=== PATIENT | male | born 1940 | race Caucasian/White ===

== ENCOUNTER 2021-09-08 15:54 | Observation (INO) | payer BC, SELFPAY ==
[2021-09-08] VITALS (8 sets, daily range): BP systolic 134–162; BP diastolic 61–66; PULSE 60–98; RESP 16–20; TEMP 36.4–36.8; O2SAT 95–98; BMI 22.8; BMI 26.3
--- NOTE | 2021-09-08 17:13 | CRLHL7_ITS ---
For Patients: As a result of the Century Cures Act, medical imaging exams and procedure reports are released immediately into your electronic medical record. You may view this report before your referring provider. If you have questions, please contact your health care provider. INDICATION: Nausea vomiting and epigastric pain.. TECHNIQUE: CT abdomen and pelvis without contrast. COMPARISON: None. FINDINGS: Lower chest: Mild bibasilar atelectasis. Liver: Normal in size and attenuation. No suspicious masses. Gallbladder and bile ducts: Mildly dilated gallbladder with sludge. No stones or inflammation. No biliary dilatation. Pancreas: Unremarkable. No mass or inflammation. Spleen: Normal in size. No masses. Adrenal glands: Normal in size. No nodules. Kidneys: Normal in size. No suspicious masses, stones, or hydronephrosis. GI tract: Unremarkable. Normal in caliber. No sign of mass or inflammation. Normal appendix. Vasculature: Abdominal aorta is normal in caliber. Lymph nodes: Significant retroperitoneal lymphadenopathy is identified. In the upper abdomen at the level of the left renal artery, medical field representative lymph node measures 2.3 by 2.6 centimeters (2/50). Or additional lymph node conglomerate is identified slightly inferiorly along the left lateral aspect of the aorta. Peritoneum/Abdominal Wall: Unremarkable. No sign of mass or infiltration. No free air or significant free fluid. Pelvis: Apodaca catheter in situ. Bones: Demineralization of the visualized bones. Scoliosis of the lumbar spine with degenerative changes. Lytic lesion with erosive changes identified at the superior aspect of the right iliac crest (273; 4/58). IMPRESSION: 1. Enlarged retroperitoneal lymph nodes with largest lymph node conglomerate along the distal left abdominal aorta of unknown etiology. The pattern of lymphadenopathy is suspicious for prostate carcinoma, or other GI/ malignancy or lymphoproliferative process. 2. Lytic lesion in the right iliac crest with erosive changes, would be a finding favoring metastatic prostate carcinoma among other metastatic malignancies. Correlate with clinical/laboratory findings and age appropriate malignancy screening. Please note that all CT scans at this facility use dose modulation, iterative reconstruction, and/or weight-based dosing when appropriate to reduce radiation dose to as low as reasonably achievable. Dictated by Geraldo Arreguin MD @ 09/08/2021 7:04:53 PM (Electronically Signed)
--- NOTE | 2021-09-08 17:20 | ED_ITS ---
HPI - Abdominal Pain General Time Seen by Provider: 17:10 Date Seen: 09/08/21 Chief Complaint: Nausea/Vomiting Stated Complaint: Epigastric pain Time Seen by Provider: 09/08/21 16:38 Source: patient and family ( is present) Mode of arrival: ambulatory Limitations: no limitations History of Present Illness HPI narrative: This 81-year-old male is a hospice patient for reported prostate cancer coming in with inability to take in oral medicines or oral liquids or food. Two nights ago he had some difficulty taking pills but then yesterday did fine until the evening. Yesterday morning he had some macaroni and cheese and shrimp during the day. However by last night he could not even swallow his pills, could not keep water down. He is having ongoing nausea and vomiting now. He complains of abdominal pain and bloating. The pain is primarily in the epigastric area. She is not aware of any fevers. He had a normal bowel movement that was reported to be ?good? yesterday. They have also noted that his lower extremities are getting more swollen, his toes are painful from the swollen to the point she does not want sheets over them. They are symmetrically swollen. He has also noted that his hands have become a bit swollen, he did take off his wedding ring earlier today. He did have to use a suppository to have a bowel movement yesterday but states it was quite good. He is a hospice patient but his symptoms are traumatic enough for him that he feels he needs evaluation and management. 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 MD elicited complaint: abdominal pain Pertinent past history: other (Prostate cancer) Onset (ago): day(s) Pain Consistency: constant Location: epigastric Severity: moderate Associated symptoms: nausea and vomiting Related Data Home Medications Medication Instructions Recorded Confirmed bisacodyl 10 mg rectal suppository 10 mg IN DAILY PRN 09/08/21 09/08/21 diphenhydramine HCl 09/08/21 gabapentin 300 mg capsule 300 mg PO DAILY 09/08/21 09/08/21 hydrocodone 5 mg-acetaminophen 325 1 tab PO Q4H 09/08/21 09/08/21 mg tablet melatonin 3 mg capsule 3 mg PO HS PRN 09/08/21 09/08/21 prochlorperazine maleate 10 mg 5 mg PO Q6H PRN 09/08/21 09/08/21 tablet sennosides 8.6 mg-docusate sodium 1 tab-cap PO BID 09/08/21 09/08/21 50 mg tablet trazodone 150 mg tablet 100 mg PO DAILY 09/08/21 09/08/21 trazodone 50 mg tablet 50 mg PO DAILY 09/08/21 09/08/21 Allergies Allergy/AdvReac Type Severity Reaction Status Date / Time No Known Drug Allergies Allergy Verified 09/08/21 16:48 Review of Systems Status of ROS Reports: 10 or more systems reviewed and unremarkable except as noted in History and below PFS PFS Social History Smoking Status: Never smoker Second hand tobacco smoke exposure: No How often do you have a drink containing alcohol: never How many standard drinks containing alcohol do you have on a typical day: 1 or 2 How often do you have six or more drinks on one occasion: Never AUDIT-C Alcohol total score: 0 Non-prescribed substance use: denies use service: Yes Exam Const: Vital Signs, click to edit/add: Vital Signs - 24 hr 09/08/21 16:34 09/08/21 16:37 09/08/21 17:00 Temperature 98.2 F Pulse Rate [Right Pulse Oximeter] 98 70 Respiratory Rate 20 18 Blood Pressure [Ri ght Upper Arm] 142/61 H 142/61 H 137/64 Pulse Oximetry 98 96 09/08/21 18:00 09/08/21 19:00 Temperature Pulse Rate [Right Pulse Oximeter] 60 60 Respiratory Rate 16 Blood Pressure [Ri ght Upper Arm] 142/66 H 162/64 H Pulse Oximetry 96 95 Documenting provider has reviewed patient's vital signs: yes Common normals: no apparent distress and oriented x3 General appearance: cooperative, frail appearing and other (Has an emesis bag in hand) Nutritional appearance: thin Orientation/consciousness: Yes awake HENMT: Common normals: normocephalic, head/scalp atraumatic and external nose normal Head and scalp: normocephalic and atraumatic Face and sinus: normal facial exam Nose: external nose normal Mouth: oral and palatal mucosa normal, lip normal and tongue normal Eye: Common normals: PERRL and EOMs intact bilaterally Pupil: PERRL Neck & C-Spine: Common normals: full ROM, no lymphadenopathy, supple and no JVD Chest: Common normals: inspection of chest normal Resp: Common normals: normal respiratory effort, no retractions, no use of accessory muscles and clear to auscultation bilaterally Auscultation: clear to auscultation bilaterally Cardio: Common normals: no JVD, regular rate, regular rhythm, S1 normal heart sound, S2 normal heart sound, no gallops, no clicks and no murmurs Rate: regular rate Rhythm: regular rhythm Heart sounds: S1 normal and S2 normal GI: Common normals: soft to palpation Inspection: abdominal distension Auscultation: hypoactive bowel sounds Palpation: soft and tender (No masses palpable however) Details: epigastric : Bladder/kidney exam: catheter in place Extremity: Other: Bilateral symmetric edema without erythema or evidence of infection. About 2 to 3+ pitting edema bilaterally, edema extends in the feet and toes. Neuro: Common normals: oriented x3 Sensorium/orientation: awake Skin: Common normals: no rashes or lesions noted General skin exam: no rashes or lesions noted Course Course Hospital Course: Reviewed with patient and his workup options. Did discuss just treating him symptomatically with pain given he is a hospice patient verses looking into possible causative etiologies. At this point he is inclined to have further evaluation and see if there is anything correctable. He does understand that there certainly may be conditions with his prostate cancer in being in hospice that we would not act on but we would not know all unless we figure out definitive pathology for his issue. He at this time seems to be having more difficulty with nausea and vomiting and this does not sound like it is dysphagia. We will proceed with basic labs and obtain CT abdomen pelvis noncontrast given the IV shortage of contrast. Patient is in agreement with the plan. We will place an IV and give him pain management with 2 mg IV morphine and nausea control with 4 mg IV Zofran. The swelling certainly is symmetric in bilateral his is wanting to know if it is something new that is happening or if it is possibly the cancer process. Certainly could be either. Reevaluation(s) Reevaluation #1: Patient has just returned from having his CT scan done. Have reviewed with them labs are looking reassuring but will await the CT scan. He is feeling a bit better after the Zofran and morphine but still does not want to attempt to try to drink anything, even declines trying ice chips. Time: 18:37 Reevaluation #2: Reviewed his CT findings. It looks like there is some significant lymphadenopathy in the pelvis which could be contributing to the edema. Have discussed that there isn't anything with in the CT that is really pointing to any cause of nausea or vomiting. They are wondering really how long he might have to live and I unfortunately reviewed with them that I really a.m. not familiar enough with his case to her really give any educated estimates on that. As far as his symptoms, if we can control his nausea he can discharge to home. He had not wanted to try anything orally but states his nausea is better. On talking to him I a still believe that this is not dysphagia. He states any time anything hit his throat it makes him feel like he wants to throw up but he is adamant that nothing is getting stuck. He is willing to try some ice chips at this point to see if he can tolerate this. If this makes him nauseated, 1st will re-dose Zofran, consider adding in some Ativan. We cannot get his nausea under control he may need to come in the hospital and have this worked on before discharging back to home. Time: 19:44 Reevaluation #3: Dr. Fallon Loera who is the hospice physician did call me at 7:54 p.m.. She was concerned about this patient and this nausea vomiting and why she could not get control of it. Reviewed with her that we really do not have a good causative etiology at this time. She wondered about esophageal or gastritis type issues as he had had a history of taking a lot of ibuprofen before the last month. Patient was concerned that some of his pain was coming back in he really did not think you would be able to swallow the [place]. He did tolerate a 2.5 mg oxycodone but then stated he did not think he would be able to swallow another 1 if he needed it. Is difficult to say if his nausea is coming back and might be narcotic induced. Not completely sure if there might be a component of dysphagia here from what is described in but he states nothing is getting stuck, it just when he swallows it makes him feel like he is nauseated and has to throw up. He is worried about going home, feeling that his nausea and pain management will not be controlled. His hospice physician favored admission. I have subsequently spoken with our hospitalist Dr. Koroma who will see and admit the patient but it will likely be under observation. I have reviewed that with patient and his as well. COVID screening testing has been added. Time: 21:10 Vital Signs Vital signs: Initial Vital Signs Pulse Rhythm 09/08/21 16:34 Respiratory Depth Normal 09/08/21 16:34 Blood Pressure 142/61 H 09/08/21 16:34 Blood Pressure Mean 88 09/08/21 16:34 Oxygen Delivery Method 09/08/21 16:34 Vital Signs Blood Pressure 142/61 H 09/08/21 16:34 Temperature 98.2 F 09/08/21 16:37 Pulse Rate 60 09/08/21 19:00 Respiratory Rate 16 09/08/21 19:00 Blood Pressure 162/64 H 09/08/21 19:00 Pulse Oximetry 95 09/08/21 19:00 MDM - Abdominal Pain MDM Narrative Medical decision making narrative: See hospital course. Lab Data Attestation: I reviewed the patient's lab results. Labs: Lab Results 09/08/21 09/08/21 09/08/21 Range/Units 17:35 17:35 17:35 WBC 8.92 (4.50-11.00) K/uL RBC 3.92 L (4.30-5.90) m/uL Hgb 10.9 L (13.5-17.5) gm/dL Hct 32.6 L (37.0-53.0) % MCV 83 (80-100) fL MCH 28 (26-34) pg MCHC 33 (32-36) gm/dL RDW Coeff of Larry 13.9 (11.5-15.5) % Plt Count 281 (140-440) K/uL Neut % (Auto) 88.9 H (42.0-72.0) % Lymph % (Auto) 5.0 L (20-44) % [place] % (Auto) 4.5 (0.0-11.0) % Eos % (Auto) 0.2 (0.0-7.0) % Baso % (Auto) 0.2 (0.0-3.0) % Neut # (Auto) 7.90 H (1.7-7.0) K/uL Lymph # (Auto) 0.40 L (0.90-2.90) K/uL [place] # (Auto) 0.40 (0.00-0.90) K/UL Eos # (Auto) 0.02 (0.00-0.50) K/uL Baso # (Auto) 0.02 (0.00-0.30) K/uL Abs Immat Gran (auto) 0.11 (0.00-0.30) K/uL Sodium 132 L (135-149) mmol/L Potassium 5.3 H (3.6-5.1) mmol/L Chloride 99 (96-114) mmol/L Carbon Dioxide 23 (20-32) mmol/L BUN 20 (7-30) mg/dL Creatinine 0.9 (0.5-1.5) mg/dL Estimated Creat Clear 55.75 Glucose 122 H (60-115) mg/dL Lactate 1.0 (0.5-1.9) mmol/L Calcium 9.5 (8.4-10.6) mg/dL Total Bilirubin 1.1 (0.1-1.5) mg/dL AST 31 (12-35) U/L ALT 15 (4-50) U/L Alkaline Phosphatase 160 H (40-150) U/L Total Protein 6.3 (6.0-8.3) g/dL Albumin 3.8 (3.3-5.0) g/dL Lipase 47 (23-300) U/L Imaging Data CT scan - abdomen: Attestation: I have reviewed the pertinent imaging results. Radiologist's impression: Patient: KEV MENDENHALL Facility:?[facility] Patient ID:?[id number] Site Patient ID:?[id number]. Site :?[id number] Study:?CT Abdomen/Pelvis WITHOUT-09/08/2021 6:39:41 PM Ordering Physician:?Wali Dobbins Final Report: INDICATION: Nausea vomiting and epigastric pain.. TECHNIQUE: CT abdomen and pelvis without contrast. COMPARISON: None. FINDINGS: Lower chest: Mild bibasilar atelectasis. Liver: Normal in size and attenuation. No suspicious masses. Gallbladder and bile ducts: Mildly dilated gallbladder with sludge. No stones or inflammation. No biliary dilatation. Pancreas: Unremarkable. No mass or inflammation. Spleen: Normal in size. No masses. Adrenal glands: Normal in size. No nodules. Kidneys: Normal in size. No suspicious masses, stones, or hydronephrosis. GI tract: Unremarkable. Normal in caliber. No sign of mass or inflammation. Normal appendix. Vasculature: Abdominal aorta is normal in caliber. Lymph nodes: Significant retroperitoneal lymphadenopathy is identified. In the upper abdomen at the level of the left renal artery, real estate representative lymph node measures 2.3 by 2.6 centimeters (2/50). Or additional lymph node conglomerate is identified slightly inferiorly along the left lateral aspect of the aorta. Peritoneum/Abdominal Wall: Unremarkable. No sign of mass or infiltration. No free air or significant free fluid. Pelvis: Apodaca catheter in situ. Bones: Demineralization of the visualized bones. Scoliosis of the lumbar spine with degenerative changes. Lytic lesion with erosive changes identified at the superior aspect of the right iliac crest (2/73; 4/58). IMPRESSION: 1. Enlarged retroperitoneal lymph nodes with largest lymph node conglomerate along the distal left abdominal aorta of unknown etiology. The pattern of lymphadenopathy is suspicious for prostate carcinoma, or other GI/ malignancy or lymphoproliferative process. 2. Lytic lesion in the right iliac crest with erosive changes, would be a finding favoring metastatic prostate carcinoma among other metastatic malignancies. Correlate with clinical/laboratory findings and age appropriate malignancy screening. Please note that all CT scans at this facility use dose modulation, iterative reconstruction, and/or weight-based dosing when appropriate to reduce radiation dose to as low as reasonably achievable. Dictated by Geraldo Arreguin MD @ 09/08/2021 7:04:53 PM (Electronic Signature) Critical Care Time Critical Care Time Critical Care Time: No Discharge Plan Discharge Clinical Impression: Acute nausea with nonbilious vomiting, Malignant neoplasm of prostate metastatic to bone Patient Disposition: Admitted As Inpatient Condition: Stable Prescriptions: No Action melatonin 3 mg capsule 3 mg PO HS PRN0RF prochlorperazine maleate 10 mg tablet 5 mg PO Q6H PRN0RF hydrocodone-acetaminophen 5-325 mg tablet 1 tab PO Q4H 0RF bisacodyl 10 mg suppository 10 mg IN DAILY PRN0RF trazodone 50 mg tablet 50 mg PO DAILY 0RF sennosides-docusate sodium 8.6-50 mg tablet 1 tab-cap PO BID 0RF gabapentin 300 mg capsule 300 mg PO DAILY 0RF diphenhydramine HCl [Benadryl Allergy] 0RF trazodone 150 mg tablet 100 mg PO DAILY 0RF
[2021-09-08 17:44] LABS: Basophils Absolute Auto 0.02 K/uL (0.00-0.30); Basophils Percent Auto 0.2 % (0.0-3.0); Eosinophils Absolute Auto 0.02 K/uL (0.00-0.50); Eosinophils Percent Auto 0.2 % (0.0-7.0); Hematocrit 32.6 % (37.0-53.0); Hemoglobin* 10.9 gm/dL (13.5-17.5); Immature Granulocytes Abs Auto 0.11 K/uL (0.00-0.30); Mean Corpuscular HGB Conc 33 gm/dL (32-36); Mean Corpuscular Hemoglobin 28 pg (26-34); Mean Corpuscular Volume 83 fL (80-100); Monocytes Percent Auto 4.5 % (0.0-11.0); Neutrophils Percent Auto 88.9 % (42.0-72.0); Platelet Count* 281 K/uL (140-440); RDW Coefficient of Variation % 13.9 % (11.5-15.5); Red Blood Count 3.92 m/uL (4.30-5.90); White Blood Count* 8.92 K/uL (4.50-11.00)
[2021-09-08 17:47] LABS: Slide Review Reflex No
[2021-09-08] MEDS: ONDANSETRON 2 MG/ML inj 4 MG IVP (17:53)
[2021-09-08] MEDS: MORPHINE 2 MG/ML inj IVP (17:56)
[2021-09-08 17:59] LABS: Albumin* 3.8 g/dL (3.3-5.0); Chloride* 99 mmol/L (96-114); Potassium* 5.3 mmol/L (3.6-5.1); Sodium* 132 mmol/L (135-149)
[2021-09-08 18:01] LABS: Aspartate Amino Transferase* 31 U/L (12-35); Bilirubin Total* 1.1 mg/dL (0.1-1.5); Carbon Dioxide* 23 mmol/L (20-32); Creatinine* 0.9 mg/dL (0.5-1.5); Est. Creatinine Clearance* 55.75
[2021-09-08 18:02] LABS: Alanine Aminotransferase* 15 U/L (4-50); Alkaline Phosphatase* 160 U/L (40-150); Blood Urea Nitrogen* 20 mg/dL (7-30); Calcium* 9.5 mg/dL (8.4-10.6); Glucose* 122 mg/dL (60-115); Lipase* 47 U/L (23-300); Total Protein* 6.3 g/dL (6.0-8.3)
--- NOTE | 2021-09-08 18:40 | ED.NURSE ---
[facility] had called-yanni, at [phone], basic update was given.
--- NOTE | 2021-09-08 18:45 | ED.NURSE ---
dr evans was in to see.
[2021-09-08] MEDS: OXYCODONE 5 MG TABLET 2.5 MG PO (20:22)
[2021-09-08 22:10] LABS: SARS Antigen* negative (Negative)
--- NOTE | 2021-09-08 22:29 | ED.NURSE ---
Report to glenna [facility] on med surg, pt transported via cart to room 243.
--- NOTE | 2021-09-08 22:38 | PM.IMHP1 ---
Hospitalist- H&P: ILANA History of Present Illness Time Seen by Provider: 22:00 Date Seen: 09/08/21 Chief complaint: Epigastric pain Narrative: Usama Young is a 81 year old male with past medical history of prostate cancer; currently enrolled in hospice presenting for evaluation of abdominal pain, nausea, and vomiting. He endorses worsening epigastric abdominal pain but denies chest pain and SOB. He endorses nauase, vomiting, constipation. He also endorses insomnia. He lives with at home and has been unable to control his symptoms. He confirms that he is enrolled in hospice, is comfort care. His primary goal is symptom management. Due to worsening nausea and vomiting he was admitted under observation status. Review of Systems Status of ROS: Reports: 6 or more systems reviewed and unremarkable except as noted in History and below PFSH PFSH Social History Smoking Status: Never smoker Second hand tobacco smoke exposure: No How often do you have a drink containing alcohol: never How many standard drinks containing alcohol do you have on a typical day: 1 or 2 How often do you have six or more drinks on one occasion: Never AUDIT-C Alcohol total score: 0 Non-prescribed substance use: denies use service: Yes Meds Home Medications and Allergies Home Medications Medication Instructions Recorded Confirmed Type bisacodyl 10 mg rectal suppository 10 mg MN DAILY PRN 09/08/21 09/08/21 History diphenhydramine HCl 09/08/21 History gabapentin 300 mg capsule 300 mg PO DAILY 09/08/21 09/08/21 History hydrocodone 5 mg-acetaminophen 325 1 tab PO Q4H 09/08/21 09/08/21 History mg tablet melatonin 3 mg capsule 3 mg PO HS PRN 09/08/21 09/08/21 History prochlorperazine maleate 10 mg 5 mg PO Q6H PRN 09/08/21 09/08/21 History tablet sennosides 8.6 mg-docusate sodium 1 tab-cap PO BID 09/08/21 09/08/21 History 50 mg tablet trazodone 150 mg tablet 100 mg PO DAILY 09/08/21 09/08/21 History trazodone 50 mg tablet 50 mg PO DAILY 09/08/21 09/08/21 History Allergies Allergy/AdvReac Type Severity Reaction Status Date / Time No Known Drug Allergies Allergy Verified 09/08/21 16:48 Exam Narrative: Exam Narrative: Gen: no acute distress HEENT: NCAT EOMI MMM Neck: Supple CV: RRR normal s1 s2 Lungs: CTAB Abd: epigastric tenderness no rebound or guarding MSK: age appropriate muscle mass Skin: warm, dry, no rash on face Neuro: alert; oriented; appears at baseline state Psych: appropriate affect Const: Vital Signs, click to edit/add: Vital Signs - 24 hr 09/08/21 16:34 09/08/21 16:37 09/08/21 17:00 Temperature 98.2 F Pulse Rate [Right Pulse Oximeter] 98 70 Respiratory Rate 20 18 Blood Pressure [Ri ght Upper Arm] 142/61 H 142/61 H 137/64 Pulse Oximetry 98 96 09/08/21 18:00 09/08/21 19:00 Temperature Pulse Rate [Right Pulse Oximeter] 60 60 Respiratory Rate 16 Blood Pressure [Ri ght Upper Arm] 142/66 H 162/64 H Pulse Oximetry 96 95 Hospitalist - H&P: Result Labs Labs: Short CBC 09/08/21 Range/Units 17:35 WBC 8.92 (4.50-11.00) K/uL Hgb 10.9 L (13.5-17.5) gm/dL Hct 32.6 L (37.0-53.0) % Plt Count 281 (140-440) K/uL BMP 09/08/21 17:35 Sodium 132 L Potassium 5.3 H Chloride 99 Carbon Dioxide 23 BUN 20 Creatinine 0.9 Glucose 122 H Calcium 9.5 Liver Function 09/08/21 Range/Units 17:35 Total Bilirubin 1.1 (0.1-1.5) mg/dL AST 31 (12-35) U/L ALT 15 (4-50) U/L Alkaline Phosphatase 160 H (40-150) U/L Albumin 3.8 (3.3-5.0) g/dL Assessment and Plan Assessment and plan (1) Acute nausea with nonbilious vomiting: Status: Acute (2) Malignant neoplasm of prostate metastatic to bone: Status: Acute Plan Assessment: Usama Young is a 81 year old male with past medical history of prostate cancer; currently enrolled in hospice presenting for evaluation of abdominal pain, nausea, and vomiting. He endorses worsening epigastric abdominal pain but denies chest pain and SOB. He endorses nauase, vomiting, constipation. He also endorses insomnia. He confirms that he is enrolled in hospice, is comfort care. His primary goal is symptom management. Due to worsening nausea and vomiting he was admitted under observation status. 1. Hx of prostate cancer 2. Nausea, vomiting, abdominal pain 3. Insomnia 4. Hospice enrolled patient 5. Mild hyponatremia and hyperkalemia Plan -admit to observation -PPI -pain control -antiemetics -no further labs, imaging, vitals as patient is comfort care Dispo-anticipated dispo to home with home hospice resumption
--- NOTE | 2021-09-08 23:21 | PC.NURSE ---
Admit 2230- Patient arrives to floor at approximately 2230. He is slid over via stretcher, bed weight obtained. He does seem to have some slight confusion. He has pain in abdomen and is sensitive to his toes being touched. Apodaca is patent and draining.
[2021-09-08] MEDS: PANTOPRAZOLE SODIUM 40 MG INJ IVP (23:27)
[2021-09-09] MEDS: LORazepam 2 MG/ML inj 0.5 MG IVP (00:05)
[2021-09-09 03:00] VITALS: BP 127/63; PULSE 61; RESP 18; TEMP 36.7; O2SAT 96
[2021-09-09] MEDS: diphenhydrAMINE 50 MG/ML inj 25 MG IVP (04:57)
--- NOTE | 2021-09-09 05:02 | PC.NURSE ---
Shift note 23-: Pt admitted for better control of epigastric pain as Hospice hasn't been able to do so for past 7 days per pt report. Pt given Protonix @ [place] w/o any c/o of epigastric or any other pain throughout the night. Pt's only c/o is sleeplessness for which Ativan and Benadryl were given, pt states chronic problem since prostate CA. Apodaca patent, turned and repositioned Q2h.
[2021-09-09 07:00] VITALS: BP 120/63; PULSE 72; RESP 20; TEMP 36.5; O2SAT 95
[2021-09-09] MEDS: GABAPENTIN 300 MG CAPSULE PO (08:27)
[2021-09-09] MEDS: SENNOSIDES/DOCUSATE TABLET 1 TAB PO ×2 (08:27→21:09)
--- NOTE | 2021-09-09 09:34 | PC.SOCIAL ---
Social work: Discharge planning: Spoke with who states she expects pt to be discharged home with [facility] resuming care at home when ready for discharge.
[2021-09-09] MEDS: fentaNYL 12 mcg/hr PATCH 1 PATCH TRANSDERMA (10:36)
[2021-09-09 11:00] VITALS: BP 129/73; PULSE 62; RESP 20; TEMP 36.8; O2SAT 95
--- NOTE | 2021-09-09 14:47 | PC.NURSE ---
shift note 07-15: pt pleasant and cooperative. very [place]. hearing aids are currently charging, his brought in the track laying supervisor today. refuses to take large pills, manual writer cut them in half. pt up to BS with A x 1, gb and walker, tolerated okay- pt weak. no c/o of n/v but pts PO fluid intake minimal, pt encouraged to drink more. pt has decreased appetite, ate 1 fruit cup and a fish fillet for lunch. c/o pain to his toes, he prefers no blankets on his feet as this causes discomfort. fentanyl patch placed on pts left shoulder. No BM. Apodaca cath patent and draining. VS WNL.
--- NOTE | 2021-09-09 16:39 | PM.IMPN1 ---
Progress Note: A&P Assessment and plan (1) Pain due to neoplasm: Status: Acute Assessment and Plan: Much improved today compared to yesterday when he 1st presented. We have transitioned him to a home going medication regimen which he is tolerating. If he continues to tolerate this then we would consider discharging him back to his home as early as tomorrow. (2) Malignant neoplasm of prostate metastatic to bone: Status: Acute Assessment and Plan: Consider adding steroids if needed for pain management. (3) Prostate cancer: Status: Acute Assessment and Plan: Patient reiterates desire for terminal comfort measures only. He declines any additional disease directed diagnostic or interventional efforts. (4) Acute nausea with nonbilious vomiting: Status: Acute Assessment and Plan: Much improved on current regimen. (5) Coronary artery disease: Status: Acute (6) History of coronary artery bypass graft: Status: Acute Plan Patient and are agreeable with above stated plans and recommendations. 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 Patient revoked his hospice participation upon admission to the hospital and will need to once again start hospice services after discharge from the hospital. Time Spent With Patient Total time spent: 30 minutes Subjective Time Seen by Provider: 08:00 Date Seen: 09/09/21 Interval history: Hospital day 2. His complaint of pain and nausea and vomiting are much improved today compared to yesterday. We were able to achieve this with IV analgesics and antiemetics. We have since switched him to oral analgesics and antiemetics different from what he came in on and he continues to do well with that at this time. The plan is to see how he does with this and if he is able to maintain this level of symptom control, then to be able to discharge him home more certainly so that he can continue to maintain this at home with assistance from [facility] hospice. Tolerating eating, drinking, moving about the room. Exam Narrative: Exam Narrative: Appears comfortable. No acute distress. Alert, oriented to self, place, time, situation. Articulate. Cooperative. Mood and affect are congruent. Lungs clear to auscultation. Heart tones with regular rhythm. Abdomen with active bowel sounds, soft, nontender. Extremities without edema. Independent transfer, station, and gait. His skin is dry and intact. Const: Vital Signs, click to edit/add: Vital Signs - 24 hr 09/08/21 17:00 09/08/21 18:00 09/08/21 19:00 Temperature Pulse Rate [Right Pulse Oximeter] 70 60 60 Respiratory Rate 18 16 Blood Pressure [Le ft Arm] Blood Pressure [Ri ght Upper Arm] 137/64 142/66 H 162/64 H Pulse Oximetry 96 96 95 09/08/21 22:30 09/08/21 22:40 09/08/21 23:31 Temperature 97.6 F 97.6 F Pulse Rate [Right Pulse Oximeter] 75 75 Respiratory Rate 16 16 Blood Pressure [Le ft Arm] 134/62 134/62 Blood Pressure [Ri ght Upper Arm] Pulse Oximetry 96 96 96 09/09/21 03:00 09/09/21 07:00 09/09/21 11:00 Temperature 98.0 F 97.7 F 98.2 F Pulse Rate [Right Pulse Oximeter] 61 72 62 Respiratory Rate 18 20 20 Blood Pressure [Le ft Arm] 127/63 120/63 129/73 Blood Pressure [Ri ght Upper Arm] Pulse Oximetry 96 95 95 Labs Labs: Laboratory Results - last 24 hr 09/08/21 09/08/21 09/08/21 17:35 17:35 17:35 WBC 8.92 RBC 3.92 L Hgb 10.9 L Hct 32.6 L MCV 83 MCH 28 MCHC 33 RDW Coeff of Larry 13.9 Plt Count 281 Neut % (Auto) 88.9 H Lymph % (Auto) 5.0 L [place] % (Auto) 4.5 Eos % (Auto) 0.2 Baso % (Auto) 0.2 Neut # (Auto) 7.90 H Lymph # (Auto) 0.40 L [place] # (Auto) 0.40 Eos # (Auto) 0.02 Baso # (Auto) 0.02 Abs Immat Gran (auto) 0.11 Sodium 132 L Potassium 5.3 H Chloride 99 Carbon Dioxide 23 BUN 20 Creatinine 0.9 Estimated Creat Clear 55.75 Glucose 122 H Lactate 1.0 Calcium 9.5 Total Bilirubin 1.1 AST 31 ALT 15 Alkaline Phosphatase 160 H Total Protein 6.3 Albumin 3.8 Lipase 47 SARS-CoV-2 Ag (Rapid) 09/08/21 21:06 WBC RBC Hgb Hct MCV MCH MCHC RDW Coeff of Larry Plt Count Neut % (Auto) Lymph % (Auto) [place] % (Auto) Eos % (Auto) Baso % (Auto) Neut # (Auto) Lymph # (Auto) [place] # (Auto) Eos # (Auto) Baso # (Auto) Abs Immat Gran (auto) Sodium Potassium Chloride Carbon Dioxide BUN Creatinine Estimated Creat Clear Glucose Lactate Calcium Total Bilirubin AST ALT Alkaline Phosphatase Total Protein Albumin Lipase SARS-CoV-2 Ag (Rapid) negative
--- NOTE | 2021-09-09 19:41 | PC.NURSE ---
Shift NOte [id number]: Unremarkable. Pt visiting with and grandson at bedside. Denies pain. Seems more concerned of potential sleeping difficulties at HS. Pt reassured there are several intervention options available. [place] patent and draining.
[2021-09-09] MEDS: bisacodyL 10 MG SUPP.RECT PR (20:19)
[2021-09-09] MEDS: TRAZODONE HCL 50 MG TABLET 100 MG PO (21:09)
[2021-09-09] MEDS: MELATONIN 3 MG TABLET PO (21:13)
[2021-09-09] MEDS: LORazepam 1 MG TABLET PO (21:23)
--- NOTE | 2021-09-10 00:43 | PC.NURSE ---
Pt. is alert and oriented, comfort cares. Pt. denies any pain. Suppository administered @2029 and Pt. had a normal BM in toilet around 2099. Pt. has an indwelling catheter patent and draining. Pt. is an assist of one but verbalizes the need for two assistants for security. Ambulates to the bathroom easily. Pt. has very sensitive feet and requires blankets to be off. Administered 3mg of Melatonin at 2099 and 1mg of Lorazepam, pt. is asleep and comfortable as of 46. has increased Melatonin to 9mg.
[2021-09-10] MEDS: MELATONIN 3 MG TABLET 9 MG PO (01:33)
[2021-09-10] MEDS: LORazepam 1 MG TABLET PO (01:34)
[2021-09-10] MEDS: SENNOSIDES/DOCUSATE TABLET 1 TAB PO (10:34)
[2021-09-10] MEDS: GABAPENTIN 300 MG CAPSULE PO (10:35)
[2021-09-10] MEDS: LIDOCAINE 5% PATCH 2 PATCH TOPICAL (10:36)
--- NOTE | 2021-09-10 12:00 | P.DS_ITS ---
DS: Providers Provider Time Seen by Provider: 12:01 Date Seen: 09/10/21 Date of admission: 09/08/21 22:25 Primary care physician: Not a Local Provider Admitting Clinician: Erick Joy MD Attending Physician on discharge: Erick Joy MD Date of Discharge: 09/10/21 DS: Diagnosis Discharge Diagnosis (1) Malignant neoplasm of prostate metastatic to bone: Status: Acute Problem details: in hospice for symptom management (2) Acute nausea with nonbilious vomiting: Status: Acute Problem details: resolved (3) Abdominal pain: Status: Acute Problem details: almost entirely resolved DS: Summary Hospital Course Hospital Course: 81-year-old male, with hospice enrollment for metastatic prostate cancer, admitted to the hospital with intractable abdominal pain, nausea, vomiting. on the day of admission he was treated symptomatic Beata for nausea and pain. He was then started on a Duragesic patch 12 micrograms/hour. Today he reports having essentially no pain. Just prior to discharge he did note that he had a very mild pain on his right flank. He has had no vomiting in the last day and he has eaten a normal diet in the last day. His has concerns about him still having episodes of pain and is concerned about some edema in his feet. I did examine his feet and he has trace edema in his feet. His feet are not tender to touch. He does complain about some pain in his toes which is unlikely to be related to the edema. He does have on his left foot an area of erythema at the 1st metatarsal tarsal joint which is apparently from a a recent injury. Does not appear to be active infection at this point and is minimally tender to touch. Abdomen is without tenderness. I had a conversation with the patient and his that he is almost certainly going to have ongoing symptoms, especially pain and nausea but possibly other symptoms. This is the primary role of hospice for symptom management. Unless his symptoms are very severe this should be able to be managed in the home by hospice staff. Status at Discharge Cognitive/behavioral status at discharge: Improved Functional status at discharge: wheelchair bound Overall status at discharge: patient is back to baseline Time Spent with Patient Time attestation: Total time spent providing and/or coordinating discharge services: 40 minutes Exam Narrative: Exam Narrative: he is alert and appears in no distress. He is oriented to his circumstances. Respirations are clear to auscultation. Cardiovascular: S1, S2, somewhat irregular rhythm. Abdomen: Bowel sounds active. Abdomen is soft without tenderness. Feet with trace edema. Bony deformity of left foot arch with mild erythema of the skin overlying this. Const: Documenting provider has reviewed patient's vital signs: yes Discharge Plan Discharge Disposition: Xfer Home- (Hospice) Date of Admission: 09/08/21 22:25 Attending Provider on Discharge: Baldomero Colmenares Primary Care Provider: Provider,Not a Local Condition: Stable Discharge Medications: New ondansetron 4 mg Tablet,Disintegrating 4 mg PO Q4H PRN (Reason: nausea/vomiting) Qty: 30 0RF fentanyl 12 mcg/hr Patch 72 Hour 1 patch transdermal Q72H Qty: 10 0RF Continued prochlorperazine maleate 10 mg tablet 10 mg PO Q6H PRN0RF hydrocodone-acetaminophen 5-325 mg tablet 1 - 2 tab PO Q4H PRN0RF Rx Instructions: 1-2 TABLETS PO Q4H PRN bisacodyl 10 mg suppository 10 mg HI DAILY PRN0RF sennosides-docusate sodium 8.6-50 mg tablet 1 tab-cap PO BID 0RF gabapentin 300 mg capsule 300 mg PO HS 0RF diphenhydramine HCl [Benadryl Allergy] 25 mg PO HS PRN0RF Label Comments: IF WAKES UP IN MIDDLE OF NIGHT nitroglycerin 0.4 mg tablet, sublingual 0.4 mg sublingual Q5-10M PRN (Reason: chest pain) 0RF Label Comments: PLACE 1 TABLET UNDER THE TONGUE AT THE 1ST SIGN OF ATTACK. IF PAIN IS UNRELIEVED OR WORSENED 5 MINS AFTER 1ST DOSE, PROMPT [facility] trazodone 100 mg tablet 100 mg PO HS 0RF lidocaine [Lidocare] 4 % adhesive patch,medicated 2 patch topical DAILY 0RF Rx Instructions: may leave on for up to 12 hrs lorazepam 1 mg tablet 1 mg PO HS PRN (Reason: sleep) 0RF Changed melatonin 3 mg capsule 9 mg PO HS PRNQty: 90 0RF Discharge Orders: Discharge Order (Routine); Ordered 09/10/21 Ordered By: Baldomero Colmenares Activity Level: Up with assist Discharge Diet: Regular Follow Up Appointments: Provider,Not a Local [Primary Care Provider] - Forms: [facility] Info Instructions Hospital Course: 81-year-old male, with hospice enrollment for metastatic prostate cancer, admitted to the hospital with intractable abdominal pain, nausea, vomiting. on the day of admission he was treated symptomatic Beata for nausea and pain. He was then started on a Duragesic patch 12 micrograms/hour. Today he reports having essentially no pain. Just prior to discharge he did note that he had a very mild pain on his right flank. He has had no vomiting in the last day and he has eaten a normal diet in the last day. His has concerns about him still having episodes of pain and is concerned about some edema in his feet. I did examine his feet and he has trace edema in his feet. His feet are not tender to touch. He does complain about some pain in his toes which is unlikely to be related to the edema. He does have on his left foot an area of erythema at the 1st metatarsal tarsal joint which is apparently from a a recent injury. Does not appear to be active infection at this point and is minimally tender to touch. Abdomen is without tenderness. I had a conversation with the patient and his that he is almost certainly going to have ongoing symptoms, especially pain and nausea but possibly other symptoms. This is the primary role of hospice for symptom management. Unless his symptoms are very severe this should be able to be managed in the home by hospice staff.
--- NOTE | 2021-09-10 12:56 | PC.NURSE ---
Antonella with [facility] notified of patient's discharge.
--- NOTE | 2021-09-10 13:55 | PC.NURSE ---
Discharge Note: Pt a/o and able to verbalize his needs. Friendly and cooperative. Moves well from chair to bed and back with assist x1. Denies nausea. C/o 04/14 RLQ abdominal pain. Fentanyl patch in place on left arm. Pt was discharged to home in the care of his at 1356 via wheelchair. Pt and his verbalized understanding of discharge instructions and follow up appointments.
== END 2021-09-10 14:06 | disposition hospice, home (50) ==
LOC: ED 21:16 → MEDSURG 22:26
PROVIDERS: Admitting Provider Hospitalist; Emergency Provider Family Medicine; Visit Provider Hospitalist
DX: G89.3 Neoplasm related pain (acute) (chronic) (principal); C61 Malignant neoplasm of prostate; C79.51 Secondary malignant neoplasm of bone; R10.13 Epigastric pain; R60.0 Localized edema; M79.676 Pain in unspecified toe(s); K59.00 Constipation, unspecified; G47.00 Insomnia, unspecified; E87.5 Hyperkalemia; E87.1 Hypo-osmolality and hyponatremia; Z95.1 Presence of aortocoronary bypass graft; I25.10 Atherosclerotic heart disease of native coronary artery without angina pectoris; R11.2 Nausea with vomiting, unspecified
CPT/HCPCS: 36415; 74176; 80053; 83605; 83690; 85025; 87426; 96374; 96375; 99284; A9270; C9113; G0378; G0379; J1200; J2060; J2270; J2405